=== PATIENT | female | born 1965 | race Caucasian/White ===

== ENCOUNTER → 2017-02-10 | Outpatient (CLI) | payer BC, OTHER ==
[~2017-02-10] MED LIST: ASPIRIN81 MG PO; DEXILANT60 MG PO; PLAVIX75 MG PO; RANEXA1000 MG PO; SYNTHROID75 MCG PO; ZANTAC300 MG PO
== END ==
LOC: KOH-I 02-08 14:45
DX: M54.5 Low back pain (principal); M47.896 Other spondylosis, lumbar region; M47.897 Other spondylosis, lumbosacral region
CPT/HCPCS: 72148